=== PATIENT | female | born 1985 | race Caucasian/White ===

== ENCOUNTER 2016-03-14 17:59 | Observation (INO) | payer BC, MEDICAID ==
[2016-03-14 18:48] VITALS: O2SAT 97
[2016-03-14 20:09] VITALS: BP 120/60; PULSE 82
== END 2016-03-14 20:11 | disposition home or self-care (01) ==
LOC: OB 17:59 → UNDOADMOB 17:59 → UNDODISOB 20:11
PROVIDERS: ADMIT Family Medicine; ATTEND Family Medicine
DX: Z34.03 Encounter for supervision of normal first pregnancy, third trimester (principal)
CPT/HCPCS: 80307; G0378

== ENCOUNTER 2016-04-14 04:10 | Inpatient (IN) | payer BC, MEDICAID ==
[2016-04-15] MEDS ORDERED: Lactated Ringers 1,000 ML IV ONE ×5 (00:05→09:58)
[2016-04-15] MEDS ORDERED: XYLOCAINE 1% HCL 20 ML MDV IJ PRN (04:31)
[2016-04-15] MEDS ORDERED: Ephedrine Sulfate 50 MG/ML IV PRN (04:34)
[2016-04-15] MEDS ORDERED: OB EPIDURAL NAROPIN/SUFENTANIL IN NACL EPIDURAL PRN (04:34)
[2016-04-15] MEDS ORDERED: PITOCIN 30 UNITS/ LR 500 ML 500 ML IV SCH (05:00)
[2016-04-15] MEDS ORDERED: Lactated Ringers 1,000 ML IV SCH (05:00)
[2016-04-15 05:16] LABS: BASOPHIL % 0.1 % (0.0-0.4); Eosinophil % 0.4 % (0.00-5.0); Granulocytes % 69.7 % (36.0-66.0); Lymphocytes % 21.5 % (24.0-44.0); Mean Cell Volume 90.9 fl (78-100); Mean Platelet Volume 12.3 fl (6-9.5); Monocytes % 8.3 % (0.0-12.0); Platelet Count 254 K/mm3 (150-450); Red Blood Count 3.97 M/mm3 (4.1-5.4); Red Cell Distribution Width 15.6 % (11.5-14.0); White Blood Count 11.5 K/mm3 (4.0-10.5)
[2016-04-15 05:27] LABS: Mean Corpuscular Hemoglobin 29.4 pg (26-32)
[2016-04-15] MEDS ORDERED: CLINDAMYCIN-D5W 900 MG/50 ML*** 50 ML IV SCH (06:00)
[2016-04-15] MEDS ORDERED: Decadron 4 MG INJ IV ONE (09:26)
[2016-04-15] MEDS ORDERED: BICITRA 30 ML CUP PO SCH (09:30)
[2016-04-15] MEDS ORDERED: Reglan 10 MG/2 ML IV SCH (09:30)
[2016-04-15] MEDS ORDERED: Pepcid 20 MG VIAL IV SCH (09:30)
[2016-04-15] MEDS ORDERED: Pitocin 10 UNITS/ML IV ONE (09:33)
[2016-04-15] MEDS ORDERED: OFIRMEV 100 ML IV ONE (09:33)
[2016-04-15] MEDS ORDERED: PHENYLEPHRINE HCL IJ ONE (09:33)
[2016-04-15] MEDS ORDERED: EPINEPHRINE 1:1000 1 ML AMP IJ ONE (09:33)
[2016-04-15] MEDS ORDERED: XYLOCAINE 2%/Epi 1:200000 20ML VIAL MPF IJ ONE (09:33)
[2016-04-15] MEDS ORDERED: SUBLIMAZE 100 MCG/2 ML IV ONE (09:33)
[2016-04-15] MEDS ORDERED: Zofran 4 MG/2 ML VIAL IV ONE (09:33)
[2016-04-15] MEDS ORDERED: Ephedrine Sulfate 50 MG/ML IJ ONE (09:33)
[2016-04-15] MEDS ORDERED: Naropin 0.5% 30 ML VIAL IJ ONE (09:33)
[2016-04-15] MEDS ORDERED: Astramorph-Pf 5 MG/10 ML IJ ONE (09:33)
[2016-04-15] MEDS ORDERED: Lactated Ringers 0 ML IV ONE (09:37)
[2016-04-15] MEDS ORDERED: KEFZOL 1 GM ONE (09:58)
[2016-04-15] MEDS ORDERED: Cleocin Phosphate IV 600 MG/4 ML ONE (10:09)
[2016-04-15 10:19] LABS: INR 0.99 (0.8-3.0); PROTIME 11.1 SECONDS (9.95-12.35)
[2016-04-15 10:21] LABS: PTT 26.5 SECONDS (25.3-37.0)
[2016-04-15] MEDS ORDERED: CLARITIN 10 MG PO PRN (11:00)
[2016-04-15] MEDS ORDERED: MORPHINE SULFATE 2 MG INJ IV PRN (11:00)
[2016-04-15] MEDS ORDERED: HOLD NARCOTIC ANALGESICS AND SEDATIVES X24 HR MC PRN (11:00)
[2016-04-15] MEDS ORDERED: Narcan 0.4 MG/ML IV PRN (11:00)
[2016-04-15] MEDS ORDERED: BENADRYL 50 MG/ML IV PRN (11:00)
[2016-04-15] MEDS ORDERED: DEMEROL 50 MG IV PRN (11:00)
[2016-04-15] MEDS ORDERED: Nubain 10 MG/ML IV PRN (11:00)
[2016-04-15] MEDS ORDERED: Zofran 4 MG/2 ML VIAL IV PRN (11:00)
[2016-04-15] MEDS ORDERED: PERCOCET TABLET 5/325MG PO PRN (11:00)
[2016-04-15] MEDS ORDERED: DEMEROL 50 MG ONE (11:24)
[2016-04-15] MEDS ORDERED: Mylicon 80MG PO PRN (12:12)
[2016-04-15] MEDS ORDERED: Anucort-HC SUPPOSITORY PR PRN (12:12)
[2016-04-15] MEDS ORDERED: CORTISONE 1% CREAM TP PRN (12:12)
[2016-04-15] MEDS ORDERED: Adacel Vial IM ONE (12:12)
[2016-04-15] MEDS ORDERED: Dulcolax 10 MG SUPP PR PRN (12:12)
[2016-04-15] MEDS ORDERED: LANSINOH 40 GM TOP PRN (12:12)
[2016-04-15] MEDS: Dextrose 5%-Lr IV Solution 1000 ML 1,000 ML IV SCH ×2 (13:04→20:50)
--- NOTE | 2016-04-15 14:48 | OP ---
SURGERY DATE/TIME: 04/15/2016 0959 PREOPERATIVE DIAGNOSES: 1) Nonreassuring heart tones. 2) Suspected arrhythmia. POSTOPERATIVE DIAGNOSES: 1) Nonreassuring heart tones. 2) macrosomia. PROCEDURE: Primary section. SURGEON: Rafita Johnson M.D. ANESTHESIA: Epidural by Jeferson Holt CRNA. ESTIMATED BLOOD LOSS: 400 cc. IV FLUIDS: 1,400 ml of crystalloid. URINE OUTPUT: 300 cc clear straw-colored urine. SPECIMEN: Placenta was sent for pathology. HISTORY: This patient came in through the night in spontaneous labor at 40-plus week's estimated gestational age. She had followed with Dr. Lawrence but he was unavailable at the time of her arrival. Her amniotic membranes artificially ruptured. There was some difficulty in external monitoring due to the patient's body habitus and some irregularity of heart tones. I placed a scalp electrode and the patient did indeed have some ectopy but appeared to have some variable decelerations and a couple of late decelerations this morning and she progressed to 5 cm dilatation and immediately developed significant caput. Therefore I advised her that primary section was indicated due to all of these parameters. I discussed the risks, benefits and alternatives including the risk of infection, risk of bleeding, and risk of damage to surrounding organs. The patient was understanding of these risks and elected to proceed with primary section. DESCRIPTION OF PROCEDURE: After informed written consent was obtained, she was taken to the operating room. Her previously placed epidural was dosed by anesthesia. She was prepped and draped in usual sterile fashion. After adequate level of anesthesia was assessed, a skin incision was made by knife and carried down through the subcutaneous fat to the level of the fascia. The fascia was nicked on both sides of the midline and extended using curved Davis scissors horizontally. The superior free edge of the fascia was then grasped with Aj clamps. The underlying rectus muscles were dissected free. The same was repeated inferiorly. The peritoneal cavity was bluntly entered carefully and extended in horizontal fashion. Bladder blade was then inserted. A bladder flap was created and reflected over the lower uterine segment. Uterine incision was made in horizontal fashion and carried down to the level of the amniotic membranes which were artificially ruptured carefully. The incision was then extended in horizontal fashion. A viable male infant was delivered with nuchal cord x1 from the vertex presentation. He had a strong cry after bulb suctioning the oropharynx and nares. The cord was clamped and cut. He was handed off to the awaiting nursery team. Next, the placenta was removed from the uterine cavity and the uterus was exteriorized. The uterine cavity was wiped free of blood and clot with lap sponge. The uterine incision was closed with #1 chromic suture in running locked fashion. Good closure and good hemostasis were achieved. Posterior cul-de-sac wiped free of blood and clot with moist lap sponge. The uterus was returned to the peritoneal cavity. The lateral gutters were wiped free of blood and clot. The incision was again inspected and noted to be hemostatic. The fascia was then closed with 0 Vicryl in a running fashion with good closure and good hemostasis. Subcutaneous fat was irrigated with warm sterile saline and any areas of bleeding were cauterized with electrocautery. Finally the skin layer was closed with 4-0 undyed Vicryl in running subcuticular fashion. Steri-Strips and occlusive dressing were placed on the incision. The patient was transferred to the recovery room in excellent condition.
[2016-04-15] MEDS ORDERED: TYLENOL EXTRA STRENGTH 500 MG PO PRN (19:20)
[2016-04-16] MEDS: Colace 100 MG PO SCH ×3 (00:49→20:59)
[2016-04-16] MEDS: Dextrose 5%-Lr IV Solution 1000 ML 1,000 ML IV SCH (04:50)
[2016-04-16 05:49] LABS: BASOPHIL % 0.1 % (0.0-0.4); Granulocytes % 78.9 % (36.0-66.0); Lymphocytes % 12.5 % (24.0-44.0); Mean Cell Volume 91.9 fl (78-100); Mean Platelet Volume 11.8 fl (6-9.5); Monocytes % 8.5 % (0.0-12.0); Platelet Count 224 K/mm3 (150-450); Red Blood Count 3.07 M/mm3 (4.1-5.4); Red Cell Distribution Width 15.7 % (11.5-14.0); White Blood Count 17.6 K/mm3 (4.0-10.5)
[2016-04-16 05:54] LABS: Mean Corpuscular Hemoglobin 29.9 pg (26-32)
[2016-04-16 09:40] VITALS: O2SAT 99
[2016-04-16] MEDS: MOTRIN 400 MG PO PRN ×2 (09:47→20:59)
[2016-04-16] MEDS: FERREX 150 PO SCH (09:47)
[2016-04-16] MEDS ORDERED: DEMEROL 75 MG IM PRN (11:00)
[2016-04-16] MEDS ORDERED: Tylenol #3 Tablet PO PRN (11:00)
[2016-04-16] MEDS ORDERED: Phenergan 25 MG INJ IM PRN (11:00)
[2016-04-16] MEDS ORDERED: TYLENOL EXTRA STRENGTH 500 MG PO PRN (12:12)
[2016-04-16] MEDS ORDERED: MOTRIN 400 MG PO PRN (12:12)
[2016-04-16] MEDS ORDERED: Ambien 10 MG PO PRN (12:12)
[2016-04-17] MEDS: MOTRIN 400 MG PO PRN ×2 (03:08→10:36)
[2016-04-17] MEDS: FERREX 150 PO SCH (10:36)
[2016-04-17] MEDS: Colace 100 MG PO SCH (10:36)
--- NOTE | 2016-04-17 10:38 | PCM.DS ---
Discharge Summary Date of Admission: 04/15/16 04:10 Admitting Physician: ANNABELLA LAWRENCE Consults: Consults on Case 04/15/16 04:34 Notify Anesthesia Provider PRN 04/15/16 09:16 Notify Physician OF ADMISSION 04/15/16 09:18 Notify Anesthesia Provider ROUTINE 04/15/16 12:15 Notify Anesthesia Provider PRN Primary Care Provider: NANABELLA LAWRENCE Allergies Allergies pseudoephedrine [From Sudafed] Allergy (Severe, Verified 04/14/16 18:42) "anaphylaxis shock" Penicillins Allergy (Unknown, Verified 04/14/16 18:42) unknown reaction Sulfa (Sulfonamide Antibiotics) Allergy (Unknown, Verified 04/14/16 18:42) "family allergy" Hospital Summary - Hospital Course Hospital Course: patient is 30[address] Lawrence who presented at 40+wks EGA in spontaneousl labor. she progressed to 5cm dilation and developed significant caput of scalp and nonreassuring heart tones. there was concern for arrythmia, baby did have pac's but overall has done great. weight was 10#2oz - Vitals & Intake/Output Vital Signs: Vital Signs Temperature 97.7 F 04/17/16 03:08 Pulse Rate 95 H 04/17/16 02:00 Respiratory Rate 18 04/17/16 02:00 Blood Pressure 119/60 04/17/16 02:00 O2 Sat by Pulse Oximetry 99 04/16/16 09:00 Intake & Output: Intake & Output 04/14/16 04/15/16 04/16/16 04/17/16 11:59 11:59 11:59 11:59 Intake Total 1000 1925 2150 Output Total 1200 Balance 5773 773 6132 Weight 134.717 kg - Lab Result Diagrams: 04/16/16 05:06 Micro Results-Entire Visit: Microbiology 04/15/16 14:49 Urine Culture - Final Catherized NO GROWTH - Procedures and Test Procedures and Tests throughout Hospitalization: Therapy Orders & Screens 04/15/16 12:18 Oxygen OXYMASK-LPM 3% Comment: for O2 less than 93% & notify Anesthesia provider Diagnosis: OB CHECK Discharge Exam General Appearance: no apparent distress, alert Respiratory Exam: normal breath sounds, lungs clear, No respiratory distress Cardiovascular Exam: regular rate/rhythm, normal heart sounds Gastrointestinal/Abdomen Exam: soft, other (incision clean/dry/intact. steri strips in place) Extremity Exam: pedal edema Final Diagnosis/Problem List - Final Discharge Diagnosis/Problem (1) delivery delivered Current Visit: Yes Status: Acute (2) macrosomia Current Visit: Yes Status: Acute - Discharge Disposition: Home, Self-Care Condition: Stable Prescriptions: New Docusate Sodium 100 mg [Colace 100 MG] 100 mg PO BID #0 capsule Iron Polysaccharides Complex [Ferrex 150] 150 mg PO DAILY #30 capsule Codeine Phosphate/APAP #3 [Tylenol #3 Tablet] 1 - 2 tab PO Q4H PRN PRN # 20 tablet PRN Reason: Severe Pain Continue Vits W-Ca,Fe,FA(<1Mg) [] 1 tab PO DAILY Follow up with: ANNABELLA LAWRENCE [Primary Care Provider] - 1 Week
[2016-04-17 16:58] VITALS: BP 135/65; PULSE 112
== END 2016-04-17 16:30 | disposition home or self-care (01) | DRG 766 ==
LOC: OB 04:10 → OBSVTOIN 04-15 04:10
PROVIDERS: ADMIT Family Medicine; ATTEND Family Medicine
PROC: 10D00Z1 Extraction of Products of Conception, Low, Open Approach (ICD-10-PCS; principal; 2016-04-15)
DX: O76 Abnormality in fetal heart rate and rhythm complicating labor and delivery (principal); Z3A.40 40 weeks gestation of pregnancy; Z37.0 Single live birth; P08.0 Exceptionally large newborn baby; P08.21 Post-term newborn
CPT/HCPCS: 01967; 01968; 36415; 62311; 64425; 80307; 81000; 85025; 85610; 85730; 86850; 86900; 86901; 87086; 88307; 90471; 90715; 94799; 99140; G0378; J0171; J0690; J1100; J2175; J2274; J2370; J2405; J2590; J2795; J3010; L0625